=== PATIENT | female | born 1960 | race Caucasian/White ===

== ENCOUNTER 2016-11-25 14:19 | Emergency (ER) | payer MEDICAID ==
[~2016-11-25] VITALS: Ht 170.2 cm; Wt 76.2 kg
[~2016-11-25 14:19] MED LIST: ACETAMINOPHEN500 M3 ORAL; ALBUTEROL SULF8.5 GM INH; AUGMENTIN 875-1 EAC1 ORAL; AZITHROMYCIN250 MG ORAL; BACTRIM-DS1 EA PO; IBUPROFEN600 MG ORAL; KEFLEX500 MG PO; MEDROL DOSEPAK4 MG ORAL; NEXAFED30 MG ORAL; NKM; NORCO 5-325 TA1 EAC1 ORAL; PREDNISONE50 MG ORAL; PROMETHAZINE-C118 M1 ORAL
[2016-11-25 14:36] VITALS: BP 128/82
[2016-11-25] MEDS ORDERED: BACITRACIN15 GM TOPIC (15:01)
[2016-11-25] MEDS ORDERED: KEFLEX500 MG ORAL (15:01)
[2016-11-25 15:08] VITALS: BP 128/82
--- NOTE | 2016-11-29 14:25 | Emergency Room Report ---
History of Present Illness General Chief Complaint: Skin Rash/Abscess Source: Patient Present Illness HPI 56-year-old female presents ED complaining of abdominal wall pain x2 days. Patient states there is swelling and redness to her left abdominal wall. Painful. 6/10, throbbing, nonradiating. Denies any itchiness. denies any known food or drug allergies. No other aggravating factors. Denies any other associated symptoms Allergies: Coded Allergies: No Known Allergies (Unverified , 09/02/15) Patient History Past Medical History: none Past Surgical History: none Pertinent Family History: none Social History: Denies: smoking, alcohol use, drug use Now: No Immunizations: UTD Reviewed Nursing Documentation: PMH: Agreed, PSxH: Agreed Nursing Documentation-PMH Past Medical History: No Stated History Review of Systems All Other Systems: negative except mentioned in HPI Physical Exam Vital Signs Date Time Temp Pulse Resp B/P (MAP) Pulse Ox O2 Delivery O2 Flow Rate FiO2 11/25/16 14:26 98.1 85 14 125/84 94 Room Air Sp02 EP Interpretation: reviewed, normal General Appearance: no apparent distress, alert, GCS 15, non-toxic Head: normocephalic, atraumatic Eyes: bilateral eye normal inspection, bilateral eye PERRL ENT: hearing grossly normal, normal pharynx, no angioedema, normal voice Neck: full range of motion, supple/symm/no masses Respiratory: chest non-tender, lungs clear, normal breath sounds, speaking full sentences Cardiovascular #1: regular rate, rhythm, no edema Cardiovascular #2: 2+ carotid (R), 2+ carotid (L), 2+ radial (R), 2+ radial (L) , 2+ dorsalis pedis (R), 2+ dorsalis pedis (L) Gastrointestinal: normal bowel sounds, non-distended, no guarding, no rebound, tenderness Rectal: deferred Genitourinary: normal inspection, no CVA tenderness Musculoskeletal: back normal, gait/station normal, normal range of motion, non- tender Neurologic: alert, oriented x3, responsive, motor strength/tone normal, sensory intact, speech normal Psychiatric: judgement/insight normal, memory normal, mood/affect normal, no suicidal/homicidal ideation Reflexes: 3+ bicep (R), 3+ bicep (L), 3+ tricep (R), 3+ tricep (L), 3+ knee (R) , 3+ knee (L) Skin: well hydrated, other - 5x5cm area of induration/erythema to L abdominal wall. no fluctuance or discharge Lymphatic: no adenopathy Medical Decision Making Diagnostic Impression: Primary Impression: Abdominal wall cellulitis ER Course Hospital Course 56-year-old female presents to ED with redness, pain to abdomen Differential diagnoses include: Cellulitis, dermatitis, insect bite, abscess Clinical course Patient placed on stretcher. After initial history, physical exam reveals a female in no acute distress. On exam there is a site for mild erythema and induration to the L abdominal wall. There is no fluctuance. There is mild tenderness. No guarding or rebound. No signs of peritoneal signs Diagnosis - abdominal wall cellulitis stable and discharged to home with prescription for Keflex, bacitracin. Instructed to followup with PMD. Instructed return to ED if symptoms recur or worsen Last Vital Signs Date Time Temp Pulse Resp B/P (MAP) Pulse Ox O2 Delivery O2 Flow Rate FiO2 11/25/16 15:08 98.0 78 16 128/82 85 Room Air Status: improved Disposition: HOME, SELF-CARE Condition: Stable Scripts Bacitracin (Bacitracin) 28.4 Gm Oint...g. 1 APPLIC TOPIC THREE TIMES A DAY, #28.4 GM Prov: CAROLINE YOUSIF M.D. 11/25/16 Cephalexin* (KEFLEX*) 500 Mg Capsule 500 MG ORAL Q6H, #28 CAP 0 Refills Prov: CAROLINE YOUSIF M.D. 11/25/16 Referrals: CHIP GRANT,REFERRING (PCP) Patient Instructions: Cellulitis, [id number] CAROLINE YOUSIF M.D. Nov 29, 2016 14:25
== END 2016-11-25 15:08 | disposition home or self-care (01) ==
LOC: EMR 14:55
DX: L03.311 Cellulitis of abdominal wall (principal)
CPT/HCPCS: 99283

== ENCOUNTER 2016-11-29 09:57 | Emergency (ER) | payer MEDICAID ==
[~2016-11-29] VITALS: Ht 167.6 cm; Wt 76.2 kg
[~2016-11-29 09:57] MED LIST changes: +BACITRACIN15 GM TOPIC; +KEFLEX500 MG ORAL
[2016-11-29 10:14] VITALS: BP 150/88
[2016-11-29 10:30] VITALS: BP 150/88
--- NOTE | 2016-11-29 10:57 | Emergency Room Report ---
History of Present Illness General Chief Complaint: Pain Source: Patient Present Illness HPI This patient states that for the past week she has had pain in the skin of her left flank. She states that the area coates and wraps around her chest wall from her mid back to her mid chest. She states that the pain is very localized. She also has a rash here. She states that any light touch bothers her and the skin is very sensitive to even clothing. She denies recent illness. She denies fever or chills. She denies nausea or vomiting. She has no other complaints. Allergies: Coded Allergies: No Known Allergies (Unverified , 09/02/15) Patient History Past Medical History: none Social History: Denies: smoking, alcohol use, drug use Reviewed Nursing Documentation: PMH: Agreed, PSxH: Agreed Nursing Documentation-PMH Past Medical History: No Stated History Review of Systems All Other Systems: negative except mentioned in HPI Physical Exam Vital Signs Date Time Temp Pulse Resp B/P (MAP) Pulse Ox O2 Delivery O2 Flow Rate FiO2 11/29/16 10:05 98.1 74 18 150/88 98 Room Air Sp02 EP Interpretation: reviewed, normal General Appearance: no apparent distress, alert, GCS 15, non-toxic Head: normocephalic, atraumatic Eyes: bilateral eye normal inspection, bilateral eye PERRL ENT: hearing grossly normal, normal pharynx, no angioedema, normal voice Neck: full range of motion, supple/symm/no masses Respiratory: no respiratory distress, no retraction, no accessory muscle use, speaking full sentences Cardiovascular #1: regular rate, rhythm Gastrointestinal: normal bowel sounds, non tender, soft, non-distended, no guarding, no rebound Rectal: deferred Musculoskeletal: back normal, gait/station normal, normal range of motion, non- tender Neurologic: alert, oriented x3, responsive, motor strength/tone normal, sensory intact, speech normal Psychiatric: judgement/insight normal, memory normal, mood/affect normal, no suicidal/homicidal ideation Skin: well hydrated, other - Dermatomal distribution of scattered erythematous lesions L. chest, flank and back. Medical Decision Making Diagnostic Impression: Primary Impression: Shingles ER Course This patient has a physical exam findings consistent with shingles. The rash on physical exam is classic for this and is in a dermatomal distribution and erythematous. The patient also has burning consistent with this. The patient has no history of immunocompromise. The patient is nontoxic overall in well- appearing. I will place the patient on antivirals and pain control medications. The patient is also strict followup with her primary care physician. The patient was educated that she should not be in contact with infants or immunocompromised persons. She indicated understanding. Last Vital Signs Date Time Temp Pulse Resp B/P (MAP) Pulse Ox O2 Delivery O2 Flow Rate FiO2 11/29/16 10:14 98.1 18 150/88 98 Room Air 11/29/16 10:05 74 Disposition: HOME, SELF-CARE Condition: Stable Referrals: CHIP GRANT,REFERRING (PCP) AALIYAH NOWAK D.O. Nov 29, 2016 10:57
[2016-11-29] MEDS ORDERED: ACETAMINOPHEN-1 EAC1 ORAL (11:00)
[2016-11-29] MEDS ORDERED: VALACYCLOVIR500 MG ORAL (11:00)
[2016-11-29] MEDS ORDERED: GABAPENTIN300 MG ORAL (11:00)
[2016-11-29] MEDS ORDERED: CAPSAICIN60 GM TP (11:00)
== END 2016-11-29 10:30 | disposition home or self-care (01) ==
LOC: EMR 10:30
DX: B02.9 Zoster without complications (principal)
CPT/HCPCS: 99283

== ENCOUNTER 2017-07-10 21:10 | Emergency (ER) | payer MEDICARE, MEDICAID ==
[~2017-07-10] VITALS: Ht 170.2 cm; Wt 67.1 kg
[~2017-07-10 21:10] MED LIST changes: +ACETAMINOPHEN-1 EAC1 ORAL; +CAPSAICIN60 GM TP; +GABAPENTIN300 MG ORAL; +VALACYCLOVIR500 MG ORAL
[2017-07-10] MEDS ORDERED: HYDROCODON-ACE1 EA15 ORAL (21:30)
[2017-07-10] MEDS ORDERED: Norco 5mg/325mg tab ORAL ONE (21:30)
[2017-07-10] MEDS ORDERED: AMITRIPTYLINE25 MG ORAL (21:30)
--- NOTE | 2017-07-10 21:30 | Emergency Room Report ---
History of Present Illness General Chief Complaint: Skin Rash/Abscess Source: Patient Present Illness HPI Is a 56-year-old female with no significant past medical she. She presents with left flank pain. About a month ago she developed viral vesicular rash it lasted for about for 5 days. It went away but the pain is still there. Pain is on the left upper quadrant area going to the back. She had similar problem in November on the right side with shingles that went away. She denies any fever chills denies any nausea vomiting. No rashes currently. Pain is 9 out of 10. Sharp in nature. Allergies: Coded Allergies: No Known Allergies (Unverified , 09/02/15) Patient History Past Medical History: see triage record, old chart reviewed Past Surgical History: other Pertinent Family History: none Social History: Reports: smoking Now: No Immunizations: other Reviewed Nursing Documentation: PMH: Agreed; PSxH: Agreed Nursing Documentation-PMH Past Medical History: No History, Except For Hx Neurological Problems: Yes - Shingles Review of Systems Eye: Denies: eye pain, blurred vision ENT: Denies: ear pain, nose congestion, throat swelling Respiratory: Denies: cough, shortness of breath Cardiovascular: Denies: chest pain, palpitations Gastrointestinal: Denies: abdominal pain, diarrhea, nausea, vomiting Musculoskeletal: Denies: back pain, joint pain Skin: Denies: rash Neurological: Denies: headache, numbness Endocrine: Denies: increased thirst, increased urine Hematologic/Lymphatic: Denies: easy bruising All Other Systems: negative except mentioned in HPI Physical Exam Vital Signs Date Time Temp Pulse Resp B/P (MAP) Pulse Ox O2 Delivery O2 Flow Rate FiO2 07/10/17 21:14 98.4 97 16 121/82 98 Room Air 98.4 vitals normal Sp02 EP Interpretation: reviewed, normal General Appearance: well appearing, no apparent distress, alert Head: normocephalic, atraumatic Eyes: bilateral eye PERRL, bilateral eye EOMI ENT: hearing grossly normal, normal pharynx Neck: full range of motion, supple, no meningismus Respiratory: chest non-tender, lungs clear, normal breath sounds Cardiovascular #1: regular rate, rhythm, no murmur Gastrointestinal: normal bowel sounds, non tender, no mass, no organomegaly, no bruit, non-distended Musculoskeletal: back normal, gait/station normal, normal range of motion Psychiatric: mood/affect normal Skin: warm/dry Medical Decision Making Diagnostic Impression: Primary Impression: Post herpetic neuralgia ER Course Patient presents with symptoms consistent with a post hepatic neuralgia. No evidence of any active single. No evidence of pancreatitis, AAA, UTI or other infectious cause. We'll discharge home. Last Vital Signs Date Time Temp Pulse Resp B/P (MAP) Pulse Ox O2 Delivery O2 Flow Rate FiO2 07/10/17 21:14 98.4 97 16 121/82 98 Room Air 98.4 Status: unchanged Disposition: HOME, SELF-CARE Condition: Stable Scripts Hydrocodone/Acetaminophen 5-325* (HYDROCODONE/ACETAMINOPHEN 5-325*) 1 Each Tablet 1 TAB ORAL Q6H PRN for For Pain, #20 TAB 0 Refills Prov: PIPER MONGE M.D. 07/10/17 Amitriptyline HCl (ELAVIL*) 25 Mg Tablet 25 MG ORAL BEDTIME, #60 TAB Prov: PIPER MONGE M.D. 07/10/17 Additional Instructions: Follow-up with your doctor in 7 days. Return if symptom worsen. PIPER MONGE M.D. July 10, 2017 21:30
[2017-07-10 21:40] VITALS: BP_SYST 0; BP_SYST 121; BP_DIAS 0; BP_DIAS 82
== END 2017-07-10 21:40 | disposition home or self-care (01) ==
LOC: EMR 21:28
DX: B02.29 Other postherpetic nervous system involvement (principal)
CPT/HCPCS: 99284

== ENCOUNTER 2017-07-16 20:02 | Emergency (ER) | payer MEDICARE, MEDICAID ==
[~2017-07-16] VITALS: Ht 170.2 cm; Wt 76.2 kg
[~2017-07-16 20:02] MED LIST changes: +AMITRIPTYLINE25 MG ORAL; +HYDROCODON-ACE1 EA15 ORAL
[2017-07-16 20:12] VITALS: BP 124/92
--- NOTE | 2017-07-16 20:24 | Emergency Room Report ---
History of Present Illness General Chief Complaint: Skin Rash/Abscess Source: Patient Present Illness HPI 56 y.o. F, with hx of shingles(currently on acyclovir) here c/o a painful abscess in inguinal regions x 3 days. pt shaved the area and stated feeling pain after. pain is 10/10, no radiation, no tingling/numbness, took norco(did not like the nausea) with no improvent. denies fever/chills, dysuria, vaginal dc , hematuria, recent trauma to vaginal area. pt was diagnosed with shingles last week, put on Acyclovir and [place]. pt is asking to change norco to another pain med that will not give her dizziness and nausea. denies sob, cp, palpitation. pt is a daily tobacco smoker. alst td one yr ago. Allergies: Coded Allergies: No Known Allergies (Unverified , 09/02/15) Patient History Past Medical History: see triage record Past Surgical History: none Pertinent Family History: unable to obtain Now: No : 0 Para: 0 Immunizations: UTD Reviewed Nursing Documentation: PMH: Agreed; PSxH: Agreed Nursing Documentation-PMH Past Medical History: No Stated History Hx Neurological Problems: Yes - Shingles Review of Systems All Other Systems: negative except mentioned in HPI Physical Exam Vital Signs Date Time Temp Pulse Resp B/P (MAP) Pulse Ox O2 Delivery O2 Flow Rate FiO2 07/16/17 20:08 98.3 96 14 124/92 95 Room Air 98.2 Sp02 EP Interpretation: reviewed, normal General Appearance: normal inspection, well appearing, no apparent distress, alert, GCS 15 Eyes: bilateral eye normal inspection, bilateral eye PERRL ENT: normal ENT inspection, hearing grossly normal Neck: normal inspection, full range of motion, supple Respiratory: normal inspection, chest non-tender, lungs clear, normal breath sounds, no rhonchi, no respiratory distress, no retraction, no accessory muscle use, no wheezing Cardiovascular #1: normal inspection, normal peripheral pulses, regular rate, rhythm, no edema, no gallop, no murmur, no rub, normal capillary refill Cardiovascular #2: 2+ radial (R), 2+ radial (L) Gastrointestinal: normal inspection, normal bowel sounds, non tender Rectal: normal exam Genitourinary: no CVA tenderness, other - abscess in right inguinal fold , no pus drainage, moderate erythema and TTP Musculoskeletal: normal inspection, back normal, non-tender Neurologic: normal inspection, alert, oriented x3 Psychiatric: normal inspection, judgement/insight normal Skin: warm/dry, rash - vesicular herpatifor rash on right flank, other - abscess right inguinal fold, erythema and edema, no pus Lymphatic: normal inspection, no adenopathy Procedures Incision and Drainage Incision and Drainage : Consent: Verbal Site: inguinal Blade Size: 11 I & D Procedure: betadine prep, sterile drapes applied, sterile dressing applied Wound Location: other - right inguinal Wound's Depth, Shape: superficial Wound Explored: clean Anesthesia: 1% Lidocaine Splint Applied?: No Sling Applied?: No Patient Tolerated: Well Complications: None Medical Decision Making PA Attestation all dx, PE, orders, procedures, tx plans reviewed and approved by my supervising physician Dr. Solomon Reaction to Intervention: Improved Diagnostic Impression: Primary Impression: Abscess Additional Impression: Erythema of groin ER Course 56 y.o. F, with hx of shingles(currently on acyclovir) here c/o a painful abscess in inguinal regions x 3 days. pt shaved the area and stated feeling pain after. pain is 10/10, no radiation, no tingling/numbness, took norco(did not like the nausea) with no improvent. denies fever/chills, dysuria, vaginal dc , hematuria, recent trauma to vaginal area. pt was diagnosed with shingles last week, put on Acyclovir and [place]. pt is asking to change norco to another pain med that will not give her dizziness and nausea. denies sob, cp, palpitation. pt is a daily tobacco smoker. last td one yr ago. Ddx considered but are not limited to inguinal abscess, HSV infx Vital signs: are WNL, pt. is afebrile H&PE are most consistent with inguinal abscess ORDERS: lidocaine 1%, wound cx, tylenol with codeine, bactrim ds bid 10d, keflex 500mg bid x10 d ED INTERVENTIONS: I and D DISCHARGE: At this time pt. is stable for d/c to home. Will provide printed patient care instructions, and any necessary prescriptions. Care plan and follow up instructions have been discussed with the patient prior to discharge. Last Vital Signs Date Time Temp Pulse Resp B/P (MAP) Pulse Ox O2 Delivery O2 Flow Rate FiO2 07/16/17 20:08 98.3 96 14 124/92 95 Room Air 98.2 Status: improved Disposition: HOME, SELF-CARE Condition: Stable Scripts Mupirocin Calcium (Bactroban) 15 Gm Cream..g. 1 APPLIC TOPIC THREE TIMES A DAY for 10 Days, #1 GM Prov: LitamogDavid babin P.A. 07/16/17 Acetaminophen/Codeine (T#4) (TYLENOL WITH CODEINE #4 TABLET*) Y Tab 1 TAB ORAL Q6HR PRN for For Pain for 7 Days, #28 TAB 0 Refills Prov: David Campbell P.A. 07/16/17 Cephalexin* (KEFLEX*) 500 Mg Capsule 500 MG ORAL EVERY 12 HOURS for 10 Days, #20 CAP 0 Refills Prov: David Campbell P.A. 07/16/17 Trimethoprim/Sulfamethoxazole 160/800* (BACTRIM DS TABLET*) 1 Each Tablet 1 TAB ORAL BID for 10 Days, #20 TAB Prov: David Campbell P.A. 07/16/17 Patient Instructions: Abscess Additional Instructions: f/u with pcp 2 days for repacking and change of dressing. if fever/chills return to ED take abx and meds as directed wear cotton underwear , keep area clean , avoid shaving close to the area David CampbellAAngel July 16, 2017 20:24
[2017-07-16] MEDS ORDERED: Lidocaine 1% Plain 30 ml INJ ONE (20:45)
[2017-07-16] MEDS ORDERED: BACTRIM DS TAB1 EAC1 ORAL (21:54)
[2017-07-16] MEDS ORDERED: BACTROBAN CR1 APPLIC TOPIC (21:54)
[2017-07-16] MEDS ORDERED: TYLENOL WITH C1 EAC1 ORAL (21:54)
[2017-07-16] MEDS ORDERED: CEPHALEXIN500 MG ORAL (21:54)
[2017-07-16] MEDS ORDERED: Bacitracin Oint UD TOPIC ONE ×2 (21:59→22:00)
[2017-07-16 22:08] VITALS: BP 0/0
== END 2017-07-16 22:08 | disposition home or self-care (01) ==
LOC: EMR 20:26
DX: L02.214 Cutaneous abscess of groin (principal)
CPT/HCPCS: 10060; 99284; J2001

== ENCOUNTER 2017-09-06 20:05 | Emergency (ER) | payer MEDICARE, MEDICAID ==
[~2017-09-06] VITALS: Ht 170.2 cm; Wt 79.8 kg
[~2017-09-06 20:05] MED LIST changes: +BACTRIM DS TAB1 EAC1 ORAL; +BACTROBAN CR1 APPLIC TOPIC; +CEPHALEXIN500 MG ORAL; +TYLENOL WITH C1 EAC1 ORAL
[2017-09-06] MEDS ORDERED: GABAPENTIN800 MG ORAL (20:13)
[2017-09-06] MEDS ORDERED: LD2JL30 TOPIC (20:13)
[2017-09-06] MEDS ORDERED: CAPSAICIN42.5 GM TP (20:13)
[2017-09-06 20:17] VITALS: BP 117/82
[2017-09-06 20:40] VITALS: BP 117/82
--- NOTE | 2017-09-06 21:37 | Emergency Room Report ---
History of Present Illness General Chief Complaint: Pain Source: Patient Present Illness HPI The patient states she has a history of shingles diagnosis. She states that this has been ongoing for many months. She states that she never had a rash that was diagnosed with post herpetic neuralgia. She states that she has been on gabapentin and other pain medications without relief. She states over the past few days she has noticed blisters on her abdomen that are very painful. She denies fever or chills. She has no other complaints. Allergies: Coded Allergies: No Known Allergies (Unverified , 09/02/15) Patient History Past Medical History: none Social History: Reports: smoking Now: No Reviewed Nursing Documentation: PMH: Agreed; PSxH: Agreed Nursing Documentation-PMH Past Medical History: No Stated History Hx Neurological Problems: Yes - Shingles Review of Systems All Other Systems: negative except mentioned in HPI Physical Exam Vital Signs Date Time Temp Pulse Resp B/P (MAP) Pulse Ox O2 Delivery O2 Flow Rate FiO2 09/06/17 20:08 98.5 105 18 117/82 97 Room Air 98.4 Sp02 EP Interpretation: reviewed, normal General Appearance: no apparent distress, alert, GCS 15, non-toxic Head: normocephalic, atraumatic Eyes: bilateral eye normal inspection, bilateral eye PERRL ENT: hearing grossly normal, normal pharynx, no angioedema, normal voice Neck: full range of motion, supple/symm/no masses Respiratory: chest non-tender, lungs clear, normal breath sounds, no respiratory distress, no retraction, no accessory muscle use, speaking full sentences Cardiovascular #1: regular rate, rhythm, no edema Rectal: deferred Musculoskeletal: back normal, gait/station normal, normal range of motion, non- tender Neurologic: alert, oriented x3, responsive, motor strength/tone normal, sensory intact, speech normal Psychiatric: judgement/insight normal, memory normal, mood/affect normal, no suicidal/homicidal ideation Skin: well hydrated, other - shallow ulcers on bilateral anterior abdomen in dermatomal distribution. 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 However, the burning that she describes is consistent with it. She does have some shallow non- inflammatory ulcer like lesions in a dermatomal distribution. She has never been treated with an antiviral or steroids. I will go ahead and do a course of these and have the patient follow-up with her primary care physician. I did not identify an emergency medical condition. The patient is given return precautions and follow-up instructions. Last Vital Signs Date Time Temp Pulse Resp B/P (MAP) Pulse Ox O2 Delivery O2 Flow Rate FiO2 09/06/17 20:17 98.4 18 117/82 97 Room Air 98.4 09/06/17 20:08 105 Status: improved Disposition: HOME, SELF-CARE Condition: Improved Opal Leyva DO Sep 06, 2017 21:37
[2017-09-06] MEDS ORDERED: NORCO 5-325 TA1 EACH ORAL (21:39)
[2017-09-06] MEDS ORDERED: ACYCLOVIR400 MG ORAL (21:39)
== END 2017-09-06 21:50 | disposition home or self-care (01) ==
LOC: EMR 21:00
DX: B02.9 Zoster without complications (principal); B02.23 Postherpetic polyneuropathy; F17.200 Nicotine dependence, unspecified, uncomplicated
CPT/HCPCS: 99282

== ENCOUNTER 2017-09-16 11:12 | Outpatient (CLI) | payer MEDICARE, MEDICAID ==
[~2017-09-16 11:12] MED LIST changes: +ACYCLOVIR400 MG ORAL; +CAPSAICIN42.5 GM TP; +GABAPENTIN800 MG ORAL; +LD2JL30 TOPIC; +NORCO 5-325 TA1 EACH ORAL
--- NOTE | 2017-09-16 16:35 | Diagnostic Imaging Report ---
Indication: 56-year-old female with pain and radiculopathy Technique: Sagittal T1 and T2 fast spin echo, sagittal STIR, axial T1 and T2 fast spin-echo images of the lumbar spine Comparison: none Findings: Bony alignment is normal. Vertebral body marrow signal is normal. Vertebral body heights are preserved. The disc spaces are preserved. Conus medullaris terminates at the mid L1 level At L2-3, circumferential annular bulge results in mild to moderate narrowing of the spinal canal. This is exacerbated by ligamentum flavum hypertrophy. The neural foramina are preserved. At L3-4, there is moderate to severe narrowing of the spinal canal. This is due to combination of circumferential annular bulge, short pedicles, ligamentum flavum hypertrophy, and abundant posterior epidural fat. This results in clumping of the nerve roots. There is only minimal if any neural foraminal compromise, however. At L4-5, there is moderate narrowing of the spinal canal resulting from combination of circumferential annular bulge, ligamentum flavum hypertrophy, and short pedicles. There is minimal compromise of the neural foramina bilaterally. At L5-S1, there is circumferential annular bulge with the posterior margin of the disc protruding approximately 5 mm posterior to the posterior margin of the vertebral body. This does not significantly narrow the spinal canal. However, there is moderate narrowing of the right neural foramen, predominantly by the bulging disc but also exacerbated by facet hypertrophy. Posterior to S1, there is asymmetrically abundant epidural fat in the anterolateral aspect of the spinal canal. However, this does not appear to significantly compromise the thecal sac or nerve roots. The included extraspinal soft tissues are unremarkable Impression: No acute bony trauma Multilevel degenerative changes, as detailed on a level by level basis above. Note evidence of significant spinal stenosis at L2-3, L3-4 and L4-5, and possibly significant neural foraminal compromise at L5-S1 on the right
--- NOTE | 2017-09-16 16:43 | Diagnostic Imaging Report ---
Indication: Pain and radiculopathy Technique: Sagittal T1 fast spin echo, sagittal T2 fast echo, sagittal STIR, axial T2 fast spin echo images were obtained through the thoracic spine Comparison: none Findings: There is very slight focal lordosis at the T6-7 level due to asymmetric anterior disc degeneration. Bony alignment is otherwise normal. The vertebral body marrow signal is preserved. The vertebral body heights are preserved. The remainder the disc spaces are largely preserved. Intrinsic cord signal is normal At T6-7, there is, in addition to circumferential annular bulge, central posterior disc protrusion. This results in moderate narrowing of the spinal canal at this level, and indents slightly the anterior aspect of the cord, although the cord remains surrounded by CSF. No evidence of significant neural foraminal compromise At T7-8, there is right parasagittal posterior disc protrusion. This may impinge minimally on the lateral recess, but does not result in any significant canal stenosis or neural foraminal stenosis. No significant neural foraminal compromise. At T10-11, there is minimal compromise of the right neural foramen due to facet hypertrophy At the remaining disc levels, no significant disc bulge or protrusion, spinal stenosis, or neural foraminal stenosis. The included extraspinal soft tissues are unremarkable Impression: Moderate spinal stenosis at T6-7 with central disc protrusion slightly indenting the anterior aspect of the spinal cord Other degenerative changes, as detailed on a level by level basis above No evidence of acute bony trauma
== END 2017-09-16 13:12 | disposition home or self-care (01) ==
LOC: RAD 11:12
DX: M54.16 Radiculopathy, lumbar region (principal); M54.14 Radiculopathy, thoracic region
CPT/HCPCS: 72146; 72148

== ENCOUNTER 2017-11-05 18:20 | Emergency (ER) | payer MEDICARE, MEDICAID ==
[~2017-11-05] VITALS: Ht 170.2 cm; Wt 84.4 kg
[2017-11-05] MEDS ORDERED: LYRICA75 M1 ORAL (18:45)
--- NOTE | 2017-11-05 19:15 | Emergency Room Report ---
History of Present Illness General Chief Complaint: Pain Source: Patient Present Illness HPI patient is a 57-year-old female with history of shingles and postherpetic neuralgia here complaining no improvement in postherpetic neuralgia for the past 3 months. Patient already under the treatment of pain management on [place] and gabapentin and Lyrica. Patient reports being sensitivities to touch on the right abdomen and tingling sensation. Rating the pain 10 out of 10 without any radiation. She is requesting gabapentin and [place]. Denies SOB, chest pain, palpitation, no associated symptoms Allergies: Coded Allergies: No Known Allergies (Unverified , 09/02/15) Patient History Past Medical History: see triage record Immunizations: UTD Reviewed Nursing Documentation: PMH: Agreed; PSxH: Agreed Nursing Documentation-PMH Past Medical History: No History, Except For Hx Neurological Problems: Yes - Shingles Review of Systems All Other Systems: negative except mentioned in HPI Physical Exam Vital Signs Date Time Temp Pulse Resp B/P (MAP) Pulse Ox O2 Delivery O2 Flow Rate FiO2 11/05/17 18:39 98.1 76 18 132/87 97 Room Air 98.1 Sp02 EP Interpretation: reviewed, normal General Appearance: normal inspection, well appearing, alert, GCS 15 Head: normocephalic Eyes: bilateral eye normal inspection, bilateral eye PERRL ENT: normal ENT inspection, normal pharynx Neck: normal inspection, full range of motion, supple Respiratory: normal inspection, chest non-tender, no rhonchi, no wheezing Cardiovascular #1: normal inspection, no edema, no murmur Gastrointestinal: normal inspection, soft Genitourinary: deferred Musculoskeletal: normal inspection, back normal, digits/nails normal, gait/ station normal Neurologic: normal inspection, alert, oriented x3, responsive, director of search engine marketing III-XII nml as tested Psychiatric: normal inspection, judgement/insight normal, memory normal Skin: normal inspection, normal color, no rash, warm/dry Lymphatic: normal inspection, no adenopathy Medical Decision Making PA Attestation OF diagnosis and treatment plans reviewed and discussed with my supervising physician Dr. Ramires Diagnostic Impression: Primary Impression: Post herpetic neuralgia ER Course patient is a 57-year-old female with history of shingles and postherpetic neuralgia here complaining no improvement in postherpetic neuralgia for the past 3 months. Patient already under the treatment of pain management on [place] and gabapentin and Lyrica. Patient reports being sensitivities to touch on the right abdomen and tingling sensation. Rating the pain 10 out of 10 without any radiation. She is requesting gabapentin and [place]. Denies SOB, chest pain, palpitation, no associated symptoms Ddx considered but are not limited to postherpetic neuralgia, generalized pain Vital signs: are WNL, pt. is afebrile H&PE are most consistent with . post herpeticNeuralgia ORDERS: gabapentin and [place] ED INTERVENTIONS: None required at this time. DISCHARGE: At this time pt. is stable for d/c to home. Will provide printed patient care instructions, and any necessary prescriptions. Care plan and follow up instructions have been discussed with the patient prior to discharge. follow-up with pain management for further assessment and more prescription of [place] on gabapentin as this is chronic pain Last Vital Signs Date Time Temp Pulse Resp B/P (MAP) Pulse Ox O2 Delivery O2 Flow Rate FiO2 11/05/17 18:39 98.1 76 18 132/87 97 Room Air 98.1 Disposition: HOME, SELF-CARE Condition: Stable Scripts Hydrocodone Bit/Acetaminophen 5-325* (NORCO 5-325*) 1 Each Tablet 1 TAB ORAL Q4H PRN for For Pain, #15 TAB 0 Refills Prov: David Campbell 11/05/17 Gabapentin* (GABAPENTIN*) 300 Mg Capsule 300 MG ORAL THREE TIMES A DAY, #15 CAP 0 Refills Prov: David Campbell 11/05/17 Patient Instructions: Postherpetic Neuralgia Additional Instructions: take medication as directed follow-up with pain management for more assessment avoid drinking alcohol and avoid taking medications together David Campbell Nov 05, 2017 19:15
[2017-11-05] MEDS ORDERED: NORCO 5-325 TA1 EACH ORAL (19:17)
[2017-11-05] MEDS ORDERED: GABAPENTIN300 MG ORAL (19:17)
[2017-11-05 19:18] VITALS: BP 129/85
[2017-11-05 19:34] VITALS: BP 129/85
== END 2017-11-05 19:34 | disposition home or self-care (01) ==
LOC: EMR 19:25
DX: B02.29 Other postherpetic nervous system involvement (principal); Z79.891 Long term (current) use of opiate analgesic; Z79.899 Other long term (current) drug therapy
CPT/HCPCS: 99283

== ENCOUNTER 2019-09-10 13:52 | Emergency (ER) | payer MEDICARE, MEDICAID ==
[~2019-09-10] VITALS: Ht 170.2 cm; Wt 83.9 kg
[~2019-09-10 13:52] MED LIST changes: +LYRICA75 M1 ORAL
[2019-09-10] MEDS ORDERED: Omnipaque-300 100ml vial INJ PRN (14:30)
[2019-09-10] MEDS ORDERED: Ketorolac 30mg Inj IV ONE (14:30)
[2019-09-10] MEDS ORDERED: cefTRIAXone 1 GM in NS 55 ML IVPB ONE (14:30)
[2019-09-10 15:09] LABS: BASOPHILS % (AUTO) 1.1 % (0.0-2.0); EOSINOPHILS % (AUTO) 6.2 % (0.0-3.0); HEMOGLOBIN 15.1 G/DL (12.0-16.0); LYMPHOCYTES % (AUTO) 30.9 % (20.0-45.0); MEAN CORPUSCULAR VOLUME 97 FL (80-99); NEUTROPHILS % (AUTO) 55.9 % (45.0-75.0); PLATELET COUNT 143 K/UL (150-450); RED BLOOD COUNT 4.52 M/UL (4.20-5.40); RED CELL DISTRIBUTION WIDTH 12.3 % (11.6-14.8); WHITE BLOOD COUNT 7.7 K/UL (4.8-10.8)
[2019-09-10 15:21] LABS: ANION GAP 6 mmol/L (5-15); BLOOD UREA NITROGEN 6 mg/dL (7-18); CALCIUM 8.9 MG/DL (8.5-10.1); CARBON DIOXIDE 29 MMOL/L (21-32); CHLORIDE 105 MMOL/L (98-107); CREATININE 0.8 MG/DL (0.55-1.30); SODIUM 140 MMOL/L (136-145)
--- NOTE | 2019-09-10 15:21 | Emergency Room Report ---
History of Present Illness General Chief Complaint: Toothache Present Illness HPI 58-year-old female with history of chronic pain and neuropathy currently on gabapentin and [place] here complaining of over 1 week of right-sided facial pain after dental work. Patient reports that her tooth was loose 1 week ago went to the dentist however this did not do any imaging done up with her any antibiotics and just took the tooth out. Patient has obvious swelling and erythema in the right maxillary sinus. Denies any fever and chills, pus drainage from the mouth, chest pain, shortness of breath, headache and dizziness. Denies any vertigo, hearing loss, nausea vomiting. Has not taken medication other than Stewart for symptom relief. Patient has an upcoming visit with dentist in 2 weeks. Patient is afebrile, neurovascularly intact. Allergies: Coded Allergies: No Known Allergies (Unverified , 09/02/15) COVID-19 Screening Contact w/high risk pt: No Experienced COVID-19 symptoms?: No COVID-19 Testing performed FRUIT RAISER: No Patient History Past Medical History: see triage record Past Surgical History: none Pertinent Family History: none Immunizations: UTD Reviewed Nursing Documentation: PMH: Agreed; PSxH: Agreed Nursing Documentation-PMH Hx Neurological Problems: Yes - Shingles Review of Systems All Other Systems: negative except mentioned in HPI Physical Exam Vital Signs Date Time Temp Pulse Resp B/P (MAP) Pulse Ox O2 Delivery O2 Flow Rate FiO2 09/10/19 14:09 98.2 77 18 110/72 (85) 96 Room Air Sp02 EP Interpretation: reviewed, normal General Appearance: no apparent distress, alert, GCS 15, non-toxic Head: normocephalic, atraumatic Eyes: bilateral eye normal inspection, bilateral eye PERRL ENT: hearing grossly normal, normal pharynx, no angioedema, normal voice Neck: full range of motion, supple/symm/no masses Respiratory: chest non-tender, lungs clear, normal breath sounds, speaking full sentences Cardiovascular #1: regular rate, rhythm, no edema Gastrointestinal: soft Genitourinary: no CVA tenderness Musculoskeletal: back normal, no calf tenderness, swelling - Right maxillary sinus Neurologic: alert, motor strength/tone normal, oriented x3, sensory intact, responsive, speech normal Psychiatric: judgement/insight normal Skin: no rash Lymphatic: no adenopathy Medical Decision Making PA Attestation All diagnoses and treatment plans were reviewed and discussed with my supervising physician Dr. Jones Diagnostic Impression: Primary Impression: Dental infection Additional Impressions: Facial cellulitis Periodontal disease ER Course 58-year-old female with history of chronic pain and neuropathy currently on gabapentin and [place] here complaining of over 1 week of right-sided facial pain after dental work. Patient reports that her tooth was loose 1 week ago went to the dentist however this did not do any imaging done up with her any antibiotics and just took the tooth out. Patient has obvious swelling and erythema in the right maxillary sinus. Denies any fever and chills, pus drainage from the mouth, chest pain, shortness of breath, headache and dizziness. Denies any vertigo, hearing loss, nausea vomiting. Has not taken medication other than [place] for symptom relief. Patient has an upcoming visit with dentist in 2 weeks. Patient is afebrile, neurovascularly intact. Ddx considered but are not limited to : Cellulitis facial abscess, superficial infection, peritonsillar abscess Vital signs: are WNL, pt. is afebrile H&PE are most consistent with: Facial cellulitis, dental infection ORDERS: CBC, CMP, blood work on, Augmentin, ibuprofen ED INTERVENTIONS: Rocephin, DISCHARGE: At this time pt. is stable for d/c to home. Will provide printed patient care instructions, and any necessary prescriptions. Care plan and follow up instructions have been discussed with the patient prior to discharge. Follow-up with your dentist, take medication as directed, if worsening symptom return to the emergency room. Avoid eating with the affected side. CT/MRI/US Diagnostic Results CT/MRI/US Diagnostic Results : Imaging Test Ordered: CT facial bones with contrast Impression Negative abscess Last Vital Signs Date Time Temp Pulse Resp B/P (MAP) Pulse Ox O2 Delivery O2 Flow Rate FiO2 09/10/19 14:09 98.2 77 18 110/72 (85) 96 Room Air Disposition: HOME, SELF-CARE Condition: Stable Scripts Ibuprofen (Ibu) 800 Mg Tablet 800 MG PO TID, #30 TAB Prov: David Campbell 09/10/19 Amoxicillin/Potassium Clav 875-125* (AUGMENTIN 875-125 TABLET*) 1 Each Tablet 1 TAB ORAL TWICE A DAY for 10 Days, #20 TAB Prov: David Campbell 09/10/19 Referrals: NON PHYSICIAN (PCP) Patient Instructions: Cellulitis, [id number] Additional Instructions: Follow-up with your dentist, take medication as directed, if worsening symptom return to the emergency room. Avoid eating with the affected side. David Campbell Sep 10, 2019 15:21
[2019-09-10 15:23] LABS: ALANINE AMINOTRANSFERASE 16 U/L (12-78); ALBUMIN 3.8 G/DL (3.4-5.0); ALKALINE PHOSPHATASE 103 U/L (46-116); ASPARTATE AMINO TRANSFERASE 16 U/L (15-37); BILIRUBIN,TOTAL 0.6 MG/DL (0.2-1.0)
[2019-09-10] MEDS ORDERED: AUGMENTIN 875-1 EAC1 ORAL (16:42)
[2019-09-10] MEDS ORDERED: IBU800 MG PO (16:42)
--- NOTE | 2019-09-10 17:11 | Diagnostic Imaging Report ---
Indication: Right-sided facial pain and swelling for one week after dental work Technique: IV administration nonionic contrast Spiral acquisitions obtained through the face. Multiplanar reconstructions were generated. Total dose length product 362 mGycm. CTDIvol(s) 11, 156, 15 mGy. Radiation dose was minimized using automated exposure control Comparison: Findings: There appears to be loss of the distal aspects of the right first and second maxillary incisors as well as of the right canine tooth, probably due to caries. There appears to be some unusual soft tissue in the expected locations of the crowns of these teeth. There is evidence of left mandibular caries and right mandibular prior tooth extractions. No evidence of apical root abscess demonstrated. There is evidence of periodontal disease involving the central mandibular incisors. There is mild infiltration of the malar region subcutaneous fat on the right as well as minimal skin thickening. No rim-enhancing fluid collection to suggest abscess demonstrated. There is minimal bilateral maxillary sinus mucosal disease. The remaining sinuses are clear. No fracture demonstrated. No unusual contrast enhancement demonstrated. The upper aerodigestive tract appears unremarkable. Impression: Mild infiltration of the right malar region subcutaneous fat and thickening of the skin. Given stated clinical history, likely on the basis of cellulitis Abnormal dentition as detailed above, particularly the right maxillary incisors and right maxillary canine tooth. Abnormal soft tissue in this area should be clinically evident. No evidence of abscess Minimal sinus disease The CT scanner at [facility] is accredited by the [employer] and the scans are performed using protocols designed to limit radiation exposure to as low as reasonably achievable to attain images of sufficient resolution adequate for diagnostic evaluation.
[2019-09-10 17:23] VITALS: BP 126/88
== END 2019-09-10 17:27 | disposition home or self-care (01) ==
LOC: EMR 14:19
DX: K04.7 Periapical abscess without sinus (principal); L03.211 Cellulitis of face; K05.6 Periodontal disease, unspecified; G62.9 Polyneuropathy, unspecified
CPT/HCPCS: 36415; 70488; 80053; 85025; 96365; 96375; 99284; J0696; J1885; Q9967